=== PATIENT | female | born 1990 | race Caucasian/White ===

== ENCOUNTER 2018-03-26 05:31 | Inpatient (IN) | payer OTHER ==
[2018-03-26 06:01] VITALS: BMI 27.4
[2018-03-26] MEDS ORDERED: Ondansetron HCl/PF 4 MG/2 ML Vial IVP PRN ×2 (06:03→14:17)
[2018-03-26] MEDS ORDERED: Butorphanol Tartrate 1 MG/ML VIAL SLOW IVP PRN (06:03)
[2018-03-26] MEDS ORDERED: Lactated Ringer's 1,000 ML IV PRN (06:03)
[2018-03-26] MEDS ORDERED: Promethazine HCl 25 MG/ML VIAL IM PRN (06:03)
[2018-03-26] MEDS: Lactated Ringer's 1,000 ML IV SCH ×2 (06:14→09:25)
[2018-03-26] MEDS ORDERED: NS w/ Oxytocin 10 units 500 ML IVPB SCH (06:15)
[2018-03-26 06:41] LABS: Glucose 86 mg/dL (70-105)
[2018-03-26 06:58] LABS: Hemoglobin 12.6 g/dL (12.0-16.0); Mean Corpuscular HGB CONC 33.3 g/dL (32.0-36.0); Mean Corpuscular Hemoglobin 27.6 pg (27.0-31.0); Mean Corpuscular Volume 82.9 fL (78.0-98.0); Mean Platelet Volume 7.9 fL (7.4-10.4); Platelet Count 172 thou/uL (130-400); RBC Distribution Width 14.3 % (11.5-14.5); Red Blood Cell (RBC) Count 4.57 mill/uL (4.20-5.40); White Blood Cell (WBC) Count 5.3 thou/uL (4.8-10.8)
[2018-03-26 07:06] LABS: Syphilis Antibody Nonreactive (Nonreactive); Syphilis Antibody Index 0.01 S/CO (<1.00 Non-Reactive)
[2018-03-26 07:07] LABS: HBSAg Index 0.21 S/CO (0-0.99); Hep B Surf Ag Non-Reactive S/CO (NonReactive)
[2018-03-26] MEDS ORDERED: Fentanyl 4 mcg/Bup 0.1% Cadd 100 ML ONE (08:08)
[2018-03-26] MEDS ORDERED: Bupivacaine 0.25% 10 ML VIAL ONE (11:11)
[2018-03-26] MEDS ORDERED: NS / Oxytocin 40 units/1000ml 1,000 ML ONE (13:21)
[2018-03-26] MEDS ORDERED: Benzocaine/Menthol 20-0.5% 60 ML CAN TOP PRN (14:17)
[2018-03-26] MEDS ORDERED: Adacel (T-DAP) 0.5 ML VIAL IM ONE (14:17)
[2018-03-26] MEDS ORDERED: Preparation H Ointment 28 GM TUBE PR PRN (14:17)
[2018-03-26] MEDS ORDERED: Milk Of Magnesia 30 ML UDCUP PO PRN (14:17)
[2018-03-26] MEDS ORDERED: Zolpidem Tartrate 5 MG TAB PO PRN (14:17)
[2018-03-26] MEDS ORDERED: HYDROcodone/Acetaminophen 5/325 mg Tablet PO PRN ×2 (14:17)
[2018-03-26] MEDS ORDERED: Lanolin Ointment 7 GM TUBE TOP PRN (14:17)
[2018-03-26] MEDS ORDERED: diphenhydrAMINE 25 MG CAP PO PRN (14:17)
[2018-03-26] MEDS ORDERED: Bisacodyl 10 MG SUPP PR PRN (14:17)
[2018-03-26] MEDS ORDERED: NS / Oxytocin 40 units/1000ml 1,000 ML IV SCH (14:30)
[2018-03-26] MEDS: Ibuprofen 800 MG TAB PO SCH ×2 (16:21→21:37)
[2018-03-26] MEDS: Ferrous Sulfate 325 MG TAB PO SCH (17:31)
[2018-03-26] MEDS: Docusate Calcium (SURFAK) 240 MG CAP PO SCH (21:41)
[2018-03-27] MEDS: Ibuprofen 800 MG TAB PO SCH ×2 (05:42→13:21)
[2018-03-27] MEDS ORDERED: Prenatal Vitamin 1 TAB PO SCH (09:00)
[2018-03-27] MEDS: Ferrous Sulfate 325 MG TAB PO SCH (09:40)
[2018-03-27] MEDS: Docusate Calcium (SURFAK) 240 MG CAP PO SCH (09:40)
[2018-03-27 11:37] VITALS: BP 137/76; TEMP 98.2
== END 2018-03-27 17:17 | disposition home or self-care (01) | DRG 807 ==
LOC: L&D 05:31 → 3SE 17:15
PROVIDERS: ADMIT Obstetrics & Gynecology; ATTEND Obstetrics & Gynecology
PROC: 10E0XZZ Delivery of Products of Conception, External Approach (ICD-10-PCS; principal; 2018-03-26)
PROC: 0KQM0ZZ Repair Perineum Muscle, Open Approach (ICD-10-PCS; 2018-03-26)
PROC: 3E033VJ Introduction of Other Hormone into Peripheral Vein, Percutaneous Approach (ICD-10-PCS; 2018-03-26)
PROC: 10907ZC Drainage of Amniotic Fluid, Therapeutic from Products of Conception, Via Natural or Artificial Opening (ICD-10-PCS; 2018-03-26)
DX: O24.429 Gestational diabetes mellitus in childbirth, unspecified control (principal); Z37.0 Single live birth; Z3A.39 39 weeks gestation of pregnancy; O13.4 Gestational [pregnancy-induced] hypertension without significant proteinuria, complicating childbirth; O70.1 Second degree perineal laceration during delivery
CPT/HCPCS: 36415; 51702; 82947; 85027; 86780; 86850; 86900; 86901; 87340; 90715; S0020